=== PATIENT | female | born 1975 | race Caucasian/White ===

== ENCOUNTER 2017-08-27 12:57 | Day surgery (SDC) | payer OTHER ==
[2017-08-27] MEDS: SOD CHLORIDE 0.9% 1,000 ML IV ×3 (06:00→22:00)
[~2017-08-27 12:57] MED LIST: CEFAZOLIN 1 GM INJ; CEFAZOLIN 1 GM/50 ML (PMX) 50 ML IVPB; LIDOCAINE 2% (SDV) 5 ML INJ; PROPOFOL 200 MG INJ; SUCCINYLCHOLINE CHLORIDE 100 MG/5 ML SYG IV
[2017-08-27] MEDS ORDERED: LABETALOL HCL 20MG INJ IV (17:00)
[2017-08-27] MEDS ORDERED: DIPHENHYDRAMINE 50 MG INJ IV (17:00)
[2017-08-27] MEDS ORDERED: HYDROmorphONE (0.2 MG/ML) 10ML SYG IV ×3 (17:00)
[2017-08-27] MEDS ORDERED: FENTAnyl 50 MCG/ML VIAL IV ×3 (17:00)
[2017-08-27] MEDS ORDERED: MEPERIDINE 25 MG INJ IV (17:00)
[2017-08-27] MEDS ORDERED: hydrALAzine 20 MG INJ IV (17:00)
[2017-08-27] MEDS ORDERED: ONDANSETRON 4 MG INJ IV (17:00)
[2017-08-27] MEDS ORDERED: PROCHLORPERAZINE 10 MG INJ IV (17:00)
[2017-08-27] MEDS ORDERED: MIDAZOLAM 1 MG/ML 2 ML INJ (17:15)
[2017-08-27] MEDS ORDERED: FENTAnyl 50 MCG/ML VIAL (17:15)
[2017-08-27] MEDS ORDERED: DEXAMETHASONE 4 MG/ML 1 ML INJ (17:24)
[2017-08-27] MEDS ORDERED: ONDANSETRON 4 MG INJ (17:24)
[2017-08-27] MEDS ORDERED: FAMOTIDINE 20 MG INJ (17:24)
[2017-08-27] MEDS: BUPIVACAINE 0.25% (MPF) 30 ML INJ (17:46)
[2017-08-27] MEDS ORDERED: ACETAMINOPHEN 1000MG/100ML IV 100 ML (17:52)
[2017-08-27] MEDS ORDERED: morphine 2 MG INJ IV (19:00)
[2017-08-27] MEDS: CEFAZOLIN 2 GM/50 ML (PMX) 50 ML IVPB (19:10)
[2017-08-27 19:28] LABS: ADD MAN DIFF? NO
[2017-08-27 19:32] LABS: WHITE BLOOD COUNT 9.3 10^3/ul (4.8-10.8)
[2017-08-27 19:32] LABS: BASOPHILS % 0.4 % (0.0-2.0); EOSINOPHILS # 0.1 10^3/ul (0.0-0.5); HEMATOCRIT 39.7 % (37.0-47.0); LYMPHOCYTES # 2.1 10^3/ul (0.8-2.9); LYMPHOCYTES % 22.7 % (15.0-51.0); MEAN CORPUSCULAR HEMOGLOBIN 27.9 pg (29.0-33.0); MEAN CORPUSCULAR HGB CONC 32.7 g/dl (32.0-37.0); MEAN CORPUSCULAR VOLUME 85.2 fl (82.0-101.0); MEAN PLATELET VOLUME 11.9 fl (7.4-10.4); MONOCYTE # 0.2 10^3/ul (0.3-0.9); MONOCYTES % 2.3 % (0.0-11.0); NEUTROPHIL # 6.8 10^3/ul (1.6-7.5); NEUTROPHILS % 73.4 % (39.0-77.0); PLATELET COUNT 240 10^3/UL (140-415); RED BLOOD COUNT 4.66 10^6/ul (4.20-5.40); RED CELL DISTRIBUTION WIDTH 13.7 % (11.5-14.5)
[2017-08-27] MEDS ORDERED: OXYCODONE/ACETAMINOPHEN (5/325) TAB PO (20:00)
[2017-08-27] MEDS ORDERED: ACETAMINOPHEN 325 MG TAB PO (20:00)
[2017-08-27 20:02] LABS: ALANINE AMINOTRANSFERASE 38 IU/L (13-69); ALBUMIN 4.2 g/dl (3.3-4.9); ALBUMIN/GLOBULIN RATIO 1.02; ALKALINE PHOSPHATASE 107 IU/L (42-121); ANION GAP 17 (8-16); ASPARTATE AMINO TRANSFERASE 29 IU/L (15-46); BILIRUBIN,INDIRECT 0.2 mg/dl (0-1.1); BILIRUBIN,TOTAL 0.2 mg/dl (0.2-1.3); CARBON DIOXIDE 23 mmol/L (21-31); CHLORIDE 107 mmol/L (97-110); GLUCOSE 110 mg/dl (70-220); TOTAL PROTEIN 8.3 g/dl (6.1-8.1)
[2017-08-27 20:11] LABS: BLOOD UREA NITROGEN 10 mg/dl (7-20); CALCIUM 10.1 mg/dl (8.4-10.2); CREATININE 0.61 mg/dl (0.44-1.00); POTASSIUM 4.1 mmol/L (3.5-5.1); SODIUM 143 mmol/L (135-144)
[2017-08-28] MEDS: CEFAZOLIN 2 GM/50 ML (PMX) 50 ML IVPB ×2 (03:18→10:05)
[2017-08-28 05:13] LABS: ADD MAN DIFF? NO
[2017-08-28 05:23] LABS: BASOPHILS % 0.1 % (0.0-2.0); HEMOGLOBIN 12.3 g/dl (12.0-16.0); LYMPHOCYTES # 1.1 10^3/ul (0.8-2.9); LYMPHOCYTES % 9.5 % (15.0-51.0); MEAN CORPUSCULAR HGB CONC 33.2 g/dl (32.0-37.0); MEAN CORPUSCULAR VOLUME 84.1 fl (82.0-101.0); MONOCYTE # 0.2 10^3/ul (0.3-0.9); MONOCYTES % 1.8 % (0.0-11.0); NEUTROPHIL # 9.7 10^3/ul (1.6-7.5); NEUTROPHILS % 88.2 % (39.0-77.0); PLATELET COUNT 249 10^3/UL (140-415)
[2017-08-28 05:57] LABS: ALANINE AMINOTRANSFERASE 31 IU/L (13-69); ALBUMIN/GLOBULIN RATIO 1.08; ALKALINE PHOSPHATASE 98 IU/L (42-121); ANION GAP 18 (8-16); ASPARTATE AMINO TRANSFERASE 25 IU/L (15-46); BILIRUBIN,INDIRECT 0.1 mg/dl (0-1.1); BILIRUBIN,TOTAL 0.1 mg/dl (0.2-1.3); BLOOD UREA NITROGEN 10 mg/dl (7-20); CALCIUM 8.9 mg/dl (8.4-10.2); CARBON DIOXIDE 22 mmol/L (21-31); CHLORIDE 107 mmol/L (97-110); CREATININE 0.58 mg/dl (0.44-1.00); GLUCOSE 135 mg/dl (70-220); POTASSIUM 4.3 mmol/L (3.5-5.1); SODIUM 143 mmol/L (135-144); TOTAL PROTEIN 7.7 g/dl (6.1-8.1)
[2017-08-28] MEDS: SOD CHLORIDE 0.9% 1,000 ML IV ×3 (06:53→18:00)
== END 2017-08-28 19:25 | disposition home or self-care (01) ==
LOC: SDS 12:57 → REC 21:15 → SDS 18:31 → REC 18:31 → SDS 18:31 → MS1 21:15 → SDS 08-28 19:25
DX: E21.3 Hyperparathyroidism, unspecified (principal); I10 Essential (primary) hypertension
CPT/HCPCS: 60500; 80053; 83970; 85025; 88307; 88331

== ENCOUNTER 2018-10-24 06:20 | Day surgery (SDC) | payer OTHER ==
[2018-10-24] MEDS ORDERED: MIDAZOLAM 1 MG/ML 2 ML INJ ×2 (09:05)
[2018-10-24] MEDS ORDERED: FENTAnyl 50 MCG/ML VIAL (09:05)
== END 2018-10-24 12:58 | disposition home or self-care (01) ==
LOC: GIL 06:20
DX: Z12.11 Encounter for screening for malignant neoplasm of colon (principal); K64.8 Other hemorrhoids
CPT/HCPCS: 45378; 84703